=== PATIENT | female | born 1975 | race Caucasian/White ===

== ENCOUNTER 2021-09-04 21:40 | Inpatient (IN) | payer OTHER ==
[~2021-09-04] VITALS: Ht 175.3 cm; Wt 227.2 kg
--- NOTE | 2021-09-04 21:44 | NUR ---
45 YR OLD FEMALE DIRECT ADMIT FROM [facility], OR. INFORMATION ENTERED IN CHART BY ASSISTANT STORE LEADER, ETC. PT OBESE AND ADMITTED INTO LIFT ROOM. CAME WITH PUREWICK, BUT PT STATED SHE COULD AND WOULD PREFER TO USE BATHROOM. SO SHE REMOVED SAID PUREWICK. NOTE SLIGHT BLOOD ON FLOOR WHEN SHE GOT BACK INTO BED. ORIENTED TO USE OF CALL LIGHT. CALL LIGHT IN REACH
--- NOTE | 2021-09-04 22:21 | NUR ---
ADMIT NOTE 45 YR OLD FEMALE ADMITTED FROM [facility], OR WITH DX OF CHF EXACERBATION. WT 501 LBS PER BED WT. ABLE TO AMBULATE TO BATHROOM. ALERT AND ORIENTED X 4. ORIENTED TO USE OF CALL LIGHT, CALL LIGHT IN REACH
[2021-09-04] MEDS ORDERED: Prinivil10 MG PO (23:16)
[2021-09-04] MEDS ORDERED: ATOR10 PO (23:17)
[2021-09-04] MEDS ORDERED: IPRAT-ALBUT 0.5-3 ML INH (23:17)
[2021-09-04] MEDS ORDERED: GABA300 PO (23:20)
[2021-09-04] MEDS ORDERED: BASAGLAR K100 UNIT/1 SC (23:21)
[2021-09-04] MEDS ORDERED: BREO ELLIPTA 21 EAC1 INH (23:21)
[2021-09-04] MEDS ORDERED: POTA10T PO (23:22)
[2021-09-04] MEDS ORDERED: EUTHYROX175 MCG PO (23:22)
[2021-09-04] MEDS ORDERED: FURO40 PO (23:23)
[2021-09-04] MEDS ORDERED: ELIQUIS5 M2 PO (23:23)
[2021-09-04] MEDS ORDERED: NOVOLOG FL100 UNIT/3 SC (23:23)
--- NOTE | 2021-09-05 01:33 | NUR ---
ALTHOUGH ABLE TO AMBULATE TO THE BATHROO, GETTING VERY TIRED, ON LASIX, AND POSSIBLE FALLS. PUREWICK APPLIED BY FEMALE RN. NOTED GROIN AND PANNIS REDNESS. NOTIFIED, NYSTATIN ORDERED TID. CALL LIGHT IN REACH
--- NOTE | 2021-09-05 04:31 | NUR ---
ELECTRICAL SYSTEMS DESIGNER SUMMARY ADMITTED TO FLOOR EARLIER IN THE SHIFT - FROM [facility], OR, AMBULANCE CREW SAID NO BEDS AVAILABLE IN THE [place]. DX CHF EXACERBATION, MORBID OBESITY (501 POUNDS PER BED SCALE). ALERT AND ORIENTED. HOB ELEVATED TO 30 DEGREES AND O2 PER NC. RT NOTIFIED OF BIPAP USE AT HOME FOR ABHIJIT. HAS BEEN UP TO BATHROOM SEVERAL TIMES DUE TO MEDICINE TO DIURESE HER. TIRED AND POTENTIAL FALLS, PUREWICK APPLIED PER FEMALE RN FOR URINE. NOTE SEVERE DISCOLARATION/REDNESS OF SKIN OF GROIN AND BENEATH PANNIS. NOTIFIED AND CREAM ORDERED AND APPLIED. CURRENTLY RESTING QUIETLY WITH CALL LIGHT IN REACH
[2021-09-05 05:07] LABS: Anion Gap 3 mmol/L (6-16); Blood Urea Nitrogen 29 mg/dL (8-24); Bun/Creatinine Ratio 40.8 (12.0-20.0); CO2, Blood 34 mmol/L (21-32); Calcium, Blood 8.1 mg/dL (8.5-10.1); Chloride, Blood 97 mmol/L (98-108); Creatinine, Blood 0.71 mg/dL (0.40-1.00); Glomerular Filtration Rate >60 (60-); Glucose, Blood 240 mg/dL (70-99); Sodium, Blood 134 mmol/L (136-145)
--- NOTE | 2021-09-05 06:24 | NUR ---
HAS BEEN SLEEPING. AWAKENED FOR AM MED. VOICED SHE WAS FEELING OK. HOB REMAINS ELEVATED AT 40 DEGREES WITH O2 PER NC. CALL LIGHT IN REACH
--- NOTE | 2021-09-05 10:25 | NUR ---
SPOKE WITH TAMIA WAY, HOTEL RECEPTIONIST NURSE ABOUT GETTING A BARIATRIC BED FOR THE PATIENT.
--- NOTE | 2021-09-05 10:33 | NUR ---
@ 0845, HL INTACT L WRIST. FLUSHED AND PATENT. TRANSPARENT DRESSING INTACT. NO REDNESS, EDEMA OR C/O PAIN TO SITE.
--- NOTE | 2021-09-05 15:25 | NUR ---
TRANSFER TO PCU SPOKE WITH DR. BAÑUELOS ABOUT PT RESPIRATORY DECLINE TODAY. PT NOW REQUIRING A V-60 BIPAP. SETTING CURRENTLY 18/8 AT 28% PER RESPIRATORY, BRIDGET. PT SOMULANT. ORDER FROM DR. BAÑUELOS TO TRANSFER TO PCU AND OBATIN AN ABG. RESPIRATORY NOTIFIED OF UPDATED PLAN AND NEED FOR ABG.
[2021-09-05 16:07] LABS: PCO2 Arterial 66.8 mmHg (35-45); PO2 Arterial 60.6 mmHg (80-100); pH Blood Arterial 7.38 (7.35-7.45)
--- NOTE | 2021-09-05 18:15 | NUR ---
SHIFT SUMMARY/TRANSFER CANCELLED. PT WOKE UP AROUND 1715. PT NOW AWAKE & ALERT IN ROOM TALKING TO MOTHER. PT PLACED BACK ON 5L O2 NC AND TOLERATING WELL. PT EATING DINNER AND TOLERATING SOME PO FLUIDS. ABG NORMAL PER RESPIRATORY. DR. BAÑUELOS NOTIFIED OF IMRPOVEMENT AND TRANSFER TO PCU WAS CANCELED. AFTERNOON SBP SOFT AT 108. VS REVIEWED. URINE CONTINUES TO BE BLOOD TINGED AND RED IN COLOR. NO OTHER ACUTE CHANGES IN ASSESSMENT AT THIS TIME.
[2021-09-05 21:14] LABS: Hematocrit 47.8 % (33.0-51.0); Hemoglobin 17.8 g/dL (11.5-16.0)
[2021-09-05 21:56] LABS: Source, Urine Foley catheter
[2021-09-05 22:01] LABS: Bilirubin, Urine Neg (Neg); Blood, Urine 2+ (Neg); Glucose Qualitative, Urine Neg (Neg); Ketones, Urine Neg (Neg); Leukocyte Esterase, Urine 1+ (Neg); Nitrite, Urine Neg (Neg); Protein, Urine 1+ (Neg); Specific Gravity, Urine 1.015 (1.003-1.022); Urobilinogen, Urine 2+ (Normal)
--- NOTE | 2021-09-05 22:22 | NUR ---
CARE ASSUMPTION PT ARRIVED TO PCU FROM MEDICAL FLOOR AT APPROX 2100. PT REMAINED ON BED, RN'S SWITCHED BEDS TO AVOID TRANSFER. PT ALERT, ON BIPAP 30/04, 35% FI02 SATTING 93%. TELEMETRY PLACED, SHOWS NSR, HR 90'S. SOFT BP, 90'S-110'S SYSTOLIC. PT ARRIVED TO FLOOR WITH PURWIK FOR URINARY. CALL PLACED TO MD CINTRON. MD CINTRON WITH ORDERS FOR VITALE CATHETER. VITALE CATHETER INSERTED WITH 4 STAFF. DRAINING CLEAR YELLOW URINE TO GRAVITY. NO BLOOD NOTED IN URINE, THOUGH BLOOD NOTED FROM VAGINA. PT C/O OF PAINFUL LEGS WHEN TOUCHED/MOVED. LASIX GIVEN PER EMAR. PT ORIENTED TO ROOM, CALL LIGHT. BED IN LOW POSITION. PT RESTING IN ROOM.
[2021-09-05 22:49] LABS: Appearance, Urine Hazy (Clear); Color, Urine Yellow (P-Yellow)
[2021-09-05 23:01] LABS: Bacteria Few /hpf; Hyaline Casts 0-2 /lpf (0-2); Squamous Epithelial Cells Rare /hpf (Few)
[2021-09-05 23:41] LABS: PCO2 Arterial 72.2 mmHg (35-45); PO2 Arterial 78.7 mmHg (80-100); pH Blood Arterial 7.37 (7.35-7.45)
--- NOTE | 2021-09-06 02:24 | NUR ---
PATIENT WAS ON MEDICAL UNTIL HER RESPIRATORY STATUS BEGAN TO WORSEN. RT INCREASED THE PATIENTS FIO2 FROM 28%- 45% BY TRANSFER TIME. PATIENT ON A BIPAP ALERT AND ORIENTED TO SELF. PATIENT COMPLAINING OF PAIN IN LOWER EXTREMITIES. MD CONSULTED PRIOR TO TRANSFER ON PATIENTS CONDITION. MD ADVISED TO HOLD LISINOPRIL IN THE AM AND TO PERFORM LABS ORDERED. REPORT GIVEN TO NURSE IN PCU.
[2021-09-06 03:36] LABS: BASOPHILS ABSOLUTE AUTO 0.04 K/mm3 (0.00-0.23); BASOPHILS PERCENT AUTO 0 % (0-2); EOSINOPHILS ABSOLUTE AUTO 0.22 K/mm3 (0.00-0.68); EOSINOPHILS PERCENT AUTO 2 % (0-6); Hematocrit 47.7 % (33.0-51.0); Hemoglobin 13.6 g/dL (11.5-16.0); IMMATURE GRAN ABSOLUTE AUTO 0.03 K/mm3 (0.00-0.10); IMMATURE GRAN PERCENT AUTO 0 % (0-1); LYMPHOCYTES ABSOLUTE AUTO 1.31 K/mm3 (0.84-5.20); LYMPHOCYTES PERCENT AUTO 13 % (21-46); MONOCYTES ABSOLUTE AUTO 0.82 K/mm3 (0.16-1.47); MONOCYTES PERCENT AUTO 8 % (4-13); Mean Corpuscular HGB 25.4 pg (26.0-34.0); Mean Corpuscular HGB Conc 28.5 g/dL (31.5-36.5); Mean Corpuscular Volume 89 fL (80-100); Mean Platelet Volume 9.3 fL (9.1-12.4); NEUTROPHILS ABSOLUTE AUTO 7.74 K/mm3 (1.96-9.15); NEUTROPHILS PERCENT AUTO 76 % (41-73); Platelet Count 336 K/mm3 (150-400); RDW Coefficient Variation 16.9 % (11.7-14.2); RDW Standard Deviation 53.8 fL (35.1-46.3); Red Blood Cell Count 5.36 M/mm3 (3.80-5.20); White Blood Cell Count 10.16 K/mm3 (4.00-11.30)
[2021-09-06 04:01] LABS: Anion Gap 4 mmol/L (6-16); Blood Urea Nitrogen 32 mg/dL (8-24); Bun/Creatinine Ratio 38.2 (12.0-20.0); CO2, Blood 35 mmol/L (21-32); Calcium, Blood 8.2 mg/dL (8.5-10.1); Chloride, Blood 99 mmol/L (98-108); Creatinine, Blood 0.84 mg/dL (0.40-1.00); Glomerular Filtration Rate >60 (60-); Glucose, Blood 147 mg/dL (70-99); Potassium, Blood 4.7 mmol/L (3.5-5.5); Sodium, Blood 138 mmol/L (136-145)
[2021-09-06 05:05] LABS: PCO2 Arterial 71.4 mmHg (35-45); PO2 Arterial 134 mmHg (80-100); pH Blood Arterial 7.37 (7.35-7.45)
--- NOTE | 2021-09-06 05:58 | NUR ---
SHIFT SUMMARY NO ACUTE CHANGES SINCE CARE ASSUMPTION. PT ALERT, ON BIPAP 30/04, 50% FI02 SATTING 96%. TELEMETRY SHOWS NSR, HR 90'S. SOFT BP, 90'S-110'S SYSTOLIC. VITALE CATHETER DRAINING CLEAR YELLOW URINE TO GRAVITY. NO BLOOD NOTED IN URINE, THOUGH BLOOD NOTED FROM WHAT APPEARS THE VAGINA. PT C/O OF PAINFUL LEGS WHEN TOUCHED/MOVED, BUT NO PAIN WHEN LEFT ALONE. PT HAD MULTIPLE ABG'S DONE WITH SMALL IMPROVEMENT IN LAB VALUES. RT'S ADJUSTING BIPAP SETTINGS ACCORDINGLY T/O NIGHT. PT DID REMOVE BIPAP TWICE FOR LESS THAN 10 MINUTES EACH DURING SHIFT. ONCE TO DRINK WATER AND ONCE BC PT AWOKE FROM [place] AND PANICKED WITH MASK ON. WHILE MASK WAS OFF, PT PLACED ON 7L NC, SATTED >94%. CALL LIGHT IN REACH.
--- NOTE | 2021-09-06 17:31 | NUR ---
SHIFT SUMMARY PT RESTING QUIETLY AT START OF SHIFT, ON BIPAP. PT WOKE EASILY FOR CARE THIS AM AND SAT UP IN BED FOR BREAKFAST. PT IS MORBIDLY OBESE MAKING MOBILITY VERY DIFFICULT. BED BATH GIVEN AFTER BREAKFAST. PT VERY EXCORIATED BETWEEN SKIN FOLDS, JEANETTE AND THIGH AREAS. NYSTATIN CREAM APPLIED PER EMAR. PT ASSISTED UP TO CHAIR AT BS AFTER BED BATH; 1P SBA TAKING ONLY A COUPLE OF STEPS. LINENS CHANGED WELL, WHILE PT OOB. DR BAÑUELOS IN TO SEE PT AND DISCUSS PLAN OF CARE. VITALE CATH D/C'D PER ORDERS. PT HAD REPORTED THAT SHE KNEW WHEN SHE WOULD NEED TO VOID AND LET US KNOW. PT JUST REPORTED THAT SHE IS UNSURE AND WILL NEED TO BE CHECKED AFTER DINNER. BLE'S VERY RED AND SWOLLEN WITH DRY PEELING SKIN. PT'S MOTHER IN TO VISIT A COUPLE OF TIMES. P/T HERE TODAY TO ATTEMPT TO WORK WITH PT. PT RETURNED TO BED WITH P/T AFTER BEING IN CHAIR AND THEN SLEPT ALL AFTERNOON. PT'S BIOX REMAINS UPPER 90'S TO 100% WHILE ON BIPAP AND AT LEAST 96% WHEN ON 6L VIA N/C WHILE EATING. NO C/O PAIN. DENIED FURTHER NEEDS AT THIS TIME. CALL LT IN REACH.
--- NOTE | 2021-09-06 18:53 | NUR ---
PT CHECKED FOR INCONTINENCE AFTER DINNER. PT CLEANED AND CHANGED. UP TO CHAIR AT BS FOR AN HOUR AFTER DINNER. PT THEN ASSISTED TO BSC TO VOID. PT CLEANED AND ASSISTED BACK INTO BED. PT WANTING TO KNOW WHEN SHE CAN GO HOME. PT IMPROVED TODAY, BEING MORE ALERT AND ABLE TO GET UP TO CHAIR AND BSC. BIPAP PLACED PER PT REQUEST FOR HS. RESTING QUIETLY AT THIS TIME. CALL LT IN REACH.
[2021-09-07 04:18] LABS: Anion Gap 2 mmol/L (6-16); Blood Urea Nitrogen 24 mg/dL (8-24); Bun/Creatinine Ratio 33.5 (12.0-20.0); CO2, Blood 38 mmol/L (21-32); Calcium, Blood 8.3 mg/dL (8.5-10.1); Chloride, Blood 97 mmol/L (98-108); Creatinine, Blood 0.72 mg/dL (0.40-1.00); Glomerular Filtration Rate >60 (60-); Glucose, Blood 147 mg/dL (70-99); Potassium, Blood 4.5 mmol/L (3.5-5.5); Sodium, Blood 137 mmol/L (136-145)
[2021-09-07 05:16] LABS: PCO2 Arterial 70.5 mmHg (35-45); PO2 Arterial 78.5 mmHg (80-100); pH Blood Arterial 7.39 (7.35-7.45)
--- NOTE | 2021-09-07 06:09 | NUR ---
SHIFT SUMMARY: NO ACUTE CHANGES THIS SHIFT. PT TOLERATED BIPAP WELL OVERNIGHT SETTINGS 35%, 18/10. PT WAS ABLE TO GET UP TO THE BEDSIDE COMMODE ON 6-7L NC, WITH DESAT TO 85% ASYMPTOMATIC. URINE OUTPUT WNL OVERNIGHT. A & O AND EASILY AROUSED FROM SLEEP.
== END 2021-09-07 18:00 | disposition home or self-care (01) | DRG 291 ==
LOC: MEDS 21:40 → PCU 09-05 20:57
PROVIDERS: Internal Medicine; ADMIT Internal Medicine
PROC: 5A09457 Assistance with Respiratory Ventilation, 24-96 Consecutive Hours, Continuous Positive Airway Pressure (ICD-10-PCS; principal; 2021-09-04)
DX: I11.0 Hypertensive heart disease with heart failure (principal); J96.21 Acute and chronic respiratory failure with hypoxia; G92.8 Other toxic encephalopathy; J96.22 Acute and chronic respiratory failure with hypercapnia; E66.2 Morbid (severe) obesity with alveolar hypoventilation; E11.40 Type 2 diabetes mellitus with diabetic neuropathy, unspecified; E03.9 Hypothyroidism, unspecified; I50.810 Right heart failure, unspecified; I27.20 Pulmonary hypertension, unspecified; G47.33 Obstructive sleep apnea (adult) (pediatric); Z53.29 Procedure and treatment not carried out because of patient's decision for other reasons; Z86.711 Personal history of pulmonary embolism; Z87.891 Personal history of nicotine dependence; Z88.0 Allergy status to penicillin; Z88.8 Allergy status to other drugs, medicaments and biological substances; Z79.4 Long term (current) use of insulin; Z79.01 Long term (current) use of anticoagulants; Z79.899 Other long term (current) drug therapy; Z99.89 Dependence on other enabling machines and devices; Z91.19 Patient's noncompliance with other medical treatment and regimen
CPT/HCPCS: 36415; 36416; 36600; 51703; 71045; 80048; 81001; 82565; 82803; 82947; 84443; 85014; 85018; 85025; 93306; 94640; 94660; 94761; 94762; 97110; 97162; 97530; A9270; J1815; J1940